=== PATIENT | female | born 2000 | race Caucasian/White ===

== ENCOUNTER 2024-12-04 21:39 | Emergency (ER) | payer OTHER | END 2024-12-04 22:52 | disposition home or self-care (01) | LOC: CSHERS 21:39 | DX: S93.402A Sprain of unspecified ligament of left ankle, initial encounter (principal); W18.42XA Slipping, tripping and stumbling without falling due to stepping into hole or opening, initial encounter; Y93.01 Activity, walking, marching and hiking | CPT/HCPCS: 99283 ==